=== PATIENT | female | born 1985 | race Caucasian/White ===

== ENCOUNTER → 2016-06-02 | Outpatient (CLI) | payer OTHER ==
[2016-06-02 08:46] LABS: LDL CHOLESTEROL,CALCULATED 133.6 mg/dL
== END ==
LOC: LAB 08:11
PROVIDERS: ATTEND Student in an Organized Health Care Education/Training Program
DX: E78.5 Hyperlipidemia, unspecified (principal)
CPT/HCPCS: 36415; 80061